=== PATIENT | female | born 1970 | race Hispanic/Latino ===

== ENCOUNTER → 2018-02-26 | Emergency (ER) | payer MEDICARE, MEDICAID ==
[~2018-02-26] MED LIST: Amoxicillin 125 mg/5 ml Oral Suspension ONE; Ibuprofen 100 MG/5 ML UDCUP ONE
== END ==
LOC: BURERS 20:06
DX: J06.9 Acute upper respiratory infection, unspecified (principal); F32.9 Major depressive disorder, single episode, unspecified; E10.9 Type 1 diabetes mellitus without complications; E78.5 Hyperlipidemia, unspecified
CPT/HCPCS: 87081; 87430; 87804; 99283